=== PATIENT | female | born 1950 | race Caucasian/White ===

== ENCOUNTER → 2020-07-20 | Outpatient (CLI) | payer MEDICARE, OTHER | LOC: HEART 5 09:00 | DX: I20.8 Other forms of angina pectoris (principal); I31.3 Pericardial effusion (noninflammatory); R00.1 Bradycardia, unspecified; Z72.0 Tobacco use | CPT/HCPCS: 78452; 93306; A9502; J2785 ==

== ENCOUNTER 2020-09-20 00:43 | Emergency (ER) | payer MEDICARE, OTHER ==
[2020-09-20 08:08] LABS: HEMOGLOBIN 15.5 gm/dl (12.3-15.3); RED BLOOD COUNT 4.78 M/UL (4.00-5.10); WHITE BLOOD COUNT 12.5 K/UL (4.5-11.0)
[2020-09-20 08:23] LABS: BUN/CREATININE RATIO 20 (0-10)
== END 2020-09-20 11:40 | disposition home or self-care (01) ==
LOC: ER1 00:43
PROVIDERS: Family Medicine
DX: G89.29 Other chronic pain (principal); R91.1 Solitary pulmonary nodule; F17.210 Nicotine dependence, cigarettes, uncomplicated; E03.9 Hypothyroidism, unspecified; E78.00 Pure hypercholesterolemia, unspecified
CPT/HCPCS: 70450; 71045; 72125; 73610; 80053; 85025; 96374; 96375; 99284; J1885; J2405

== ENCOUNTER → 2021-01-12 | Outpatient (CLI) | payer MEDICARE, OTHER ==
[2021-01-12 15:09] LABS: HEMOGLOBIN 15.3 gm/dl (12.3-15.3); RED BLOOD COUNT 4.71 M/UL (4.00-5.10); WHITE BLOOD COUNT 8.9 K/UL (4.5-11.0)
[2021-01-12 15:54] LABS: BUN/CREATININE RATIO 17 (0-10)
== END ==
LOC: CT 12-09 09:30
PROVIDERS: Internal Medicine Hematology & Oncology
DX: R91.8 Other nonspecific abnormal finding of lung field (principal); R97.8 Other abnormal tumor markers
CPT/HCPCS: 36415; 71260; 80053; 85025; Q9967

== ENCOUNTER → 2021-07-19 | Outpatient (CLI) | payer MEDICARE, OTHER | LOC: RAD 13:34 | DX: S16.1XXA Strain of muscle, fascia and tendon at neck level, initial encounter (principal); M54.2 Cervicalgia; M47.812 Spondylosis without myelopathy or radiculopathy, cervical region | CPT/HCPCS: 72050 ==

== ENCOUNTER 2021-11-16 22:12 | Emergency (ER) | payer MEDICARE | END 2021-11-16 23:40 | disposition home or self-care (01) | LOC: ER1 22:12 | DX: I82.4Y1 Acute embolism and thrombosis of unspecified deep veins of right proximal lower extremity (principal) | CPT/HCPCS: 99283 ==

== ENCOUNTER → 2021-11-17 | Outpatient (CLI) | payer MEDICARE, OTHER | LOC: EXRD 11:06 | DX: I73.9 Peripheral vascular disease, unspecified (principal) | CPT/HCPCS: 93971 ==

== ENCOUNTER → 2022-03-21 | Outpatient (CLI) | payer MEDICARE, OTHER | LOC: KOH-I 14:48 → CT 15:00 | DX: F17.210 Nicotine dependence, cigarettes, uncomplicated (principal); R91.8 Other nonspecific abnormal finding of lung field | CPT/HCPCS: 71271 ==